=== PATIENT | male | born 1955 | race Caucasian/White ===

== ENCOUNTER 2019-09-09 09:18 | Emergency (ER) | payer BC, OTHER ==
--- OUTSIDE RECORDS SUMMARY | 2019-09-09 09:26 | XMS REPORT | Continuity of Care Document ---
:1955 External Reference #:[id number] Author Name Skyler Cote N.P. Address [address] [place] [address] Problems Active Problems Provider Date Anxiety Skyler Cote N.PVanesa Onset: 04/06/2015 Osteoarthritis Skyler Cote N.P. 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 Onset: 2015 substance or known physiological condition Social History Type Date Description Comments Sex Unknown Tobacco Use Start: Unknown Never Smoked Cigarettes Tobacco Use Start: Unknown Patient has never smoked Allergies, Adverse Reactions, Alerts Active Allergies Reaction Severity Comments Date Sulfa 02/08/2007 Tylenol intolerance 03/15/2014 Medications Active Medications SIG Qnty Indications Ordering Provider Date Ciprofloxacin HCL 1 by mouth twice 20tabs Skyler Cote, 08/23/2019 500mg a day x 10 days N.P. Tablets Doxycycline Hyclate 2 by mouth once 2caps Skyler Cote, 08/01/2019 100mg today N.P. Capsules Hydrocodone-Ibuprofen 1 by mouth every 30tabs Skyler Cote, 2016 6 hours as N.P. 7.5-200mg Tablets needed pain Diazepam 1 twice a day as 60tabs Skyler Cote, 06/01/2017 10mg Tablets needed N.P. Zolpidem Tartrate 1 by mouth every 30tabs Skyler Cote, 06/01/2017 10mg night at bedtime N.P. Tablets Immunizations CPT Code Status Date Vaccine Lot # [id number] Given 11/04/2007 Tdap (Adacel) Ages 7 And Above Only [id number] Refused 08/30/2019 Influenza Vac, Quadrivalent, Split, 0.5mL Dosage, Im Use [id number] Refused 12/31/2018 Influenza Vac, Quadrivalent, Split, 0.5mL Dosage, Im Use Vital Signs Date Vital Result Comment 08/30/2019 10:01am Body Temperature 97.7 F Weight 223.00 lb Heart Rate 72 /min BP Systolic 158 mmHg BP Diastolic 88 mmHg O2 % BldC Oximetry 96 % 06/13/2019 1:32pm Body Temperature 97.5 F Weight 228.38 lb Heart Rate 97 /min BP Systolic 122 mmHg BP Diastolic 80 mmHg O2 % BldC Oximetry 97 % Results Test Acquired Date Facility Test Result H/L Range Note Laboratory test finding 08/30/2019 [facility] BNP 18 pg/mL (0-125) 1, 2 Comprehensive Met 08/30/2019 [facility] Sodium 137 mmol/L 135-146 3 [facility] Potassium 4.4 mmol/L 3.5-5.2 Chloride# 102 mmol/L 97-110 4 Carbon Dioxide 24 mmol/L 24-34 Calcium 10.0 mg/dL 8.5-10.5 5 Glucose 111 mg/dL High 70-105 BUN 20 mg/dL 6-26 Creatinine 1.0 mg/dL 0.5-1.4 Total Protein 6.9 g/dL 6.0-8.0 Albumin 4.8 g/dL 3.6-4.9 Globulin 2.1 g/dL 2.0-3.5 A/G Ratio 2.3 Ratio High 1.0-2.2 Total Bilirubin 0.6 mg/dL 0.1-1.3 Alkaline Phosphatase 56 U/L 24-140 Alt 40 U/L 3-42 Ast 20 U/L 8-42 Anion Gap 11 mmol/L 5-15 6 Female Egfr 60 Low >60 7 Male Egfr 80 >60 8 CBC with Auto Diff-[facility] 08/30/2019 [facility] WBC 10.6 K/uL 4.1-11.0 RBC 5.01 M/uL 4.60-6.10 Hemoglobin 16.0 gm/dL 13.5-18.0 Hematocrit 46.2 % 41.0-53.0 MCV 92.3 fL 80.0-97.0 MCH 32.0 pg 27.0-32.0 MCHC 34.7 g/dL 32.0-36.0 RDW 13.4 % 11.5-14.5 PLT Count 309 K/ul 140-400 MPV 8.1 FL 7.1-10.7 Neutrophil 67.0 % 35.0-75.0 Lymphocyte 20.5 % 16.0-52.0 Monocyte 9.0 % 2.0-10.0 Eosinophil 2.9 % 0.0-5.0 Basophil 0.6 % 0.0-4.0 Abs Neutrophils 7.1 K/uL 2.1-8.0 Abs Lymphocytes 2.2 K/uL 0.8-5.5 Abs Monocytes 1.0 K/uL 0.1-1.0 Abs Eosinophils 0.3 K/uL 0.0-0.5 Abs Basophils 0.1 K/uL 0.0-0.3 Lipid 08/30/2019 [facility] Cholesterol 274 mg/dL High 50-199 Triglycerides 203 mg/dL High 30-200 HDL 56 mg/dL 29-71 9 Chol/ HDL Ratio 4.9 ratio 4.0-6.7 VLDL 41 mg/dL High 2-29 LDL (Calc) 178 mg/dL High 20-99 10 [facility] Ig[facility]gg [facility]Neg) 11 AB @ Laboratory test 08/30/2019 [facility] Urine Culture Microbiology res 12 finding <SEE NOTE> Comprehensive Met 06/13/2019 [facility] Sodium 140 mmol/L 135-146 13, 14 [facility] Potassium 4.5 mmol/L 3.5-5.2 Chloride# 100 mmol/L 97-110 15 Carbon Dioxide 27 mmol/L 24-34 Calcium 10.1 mg/dL 8.5-10.5 16 Glucose 124 mg/dL High 70-105 BUN 17 mg/dL 6-26 Creatinine 1.1 mg/dL 0.5-1.4 Total Protein 6.8 g/dL 6.0-8.0 Albumin 4.6 g/dL 3.6-4.9 Globulin 2.2 g/dL 2.0-3.5 A/G Ratio 2.1 Ratio 1.0-2.2 Total Bilirubin 0.5 mg/dL 0.1-1.3 Alkaline Phosphatase 48 U/L 24-140 Alt 38 U/L 3-42 Ast 17 U/L 8-42 Anion Gap 13 mmol/L 5-15 17 Female Egfr 51 Low >60 18 Male Egfr 68 >60 19 Laboratory test 06/13/2019 [facility] PSA 1.230 ng/mL 0.000-4.000 20 finding Lipid 06/13/2019 [facility] Cholesterol 285 mg/dL High 50-199 Triglycerides 413 mg/dL High 30-200 21 HDL 45 mg/dL 29-71 22 Chol/ HDL Ratio 6.3 ratio 4.0-6.7 Laboratory test finding 06/13/2019 [facility] LDL 198 mg/dL High 20- 99 23 1 This sample is drawn by:DL/STOCKROOM KEEPER 2 Unless otherwise specified, testing performed by [facility] [address] [place] [address] 3 Updated reference range on new analyzer 4 Updated reference range on new analyzer 5 Updated reference range 02-23-2019 6 Updated Reference Range 7 Concerning GFR Guidelines for Americans: Normal function or mild renal disease, if clinically at risk: >/= 60 mL/min Moderately decreased: 30-59 Severely decreased: 15-29 Renal failure: <15 There is reduced accuracy above 60ml/min/1.73 m squared, but the numeric value may be clinically useful in the near 60 range 8 Concerning GFR Guidelines: Normal function or mild renal disease, if clinically at risk: >/= 60 mL/min Moderately decreased: 30-59 Severely decreased: 15-29 Renal failure: <15 There is reduced accuracy above 60ml/min/1.73 m squared, but the numeric value may be clinically useful in the near 60 range Glomerular Filtration Rate (GFR) is estimated based on the CKD-EPI equation, which assumes a steady state for creatinine as recommended by the National Kidney Disease Education Program in conjunction with the National Institutes of Health and the National Kidney Foundation. Clinical conditions in which it may be necessary to measure GFR by using clearance methods include extremes of age and body size, severe malnutrition or obesity, diseases of skeletal muscle, paraplegia or quadriplegia, vegetarian diet, rapidly changing kidney function, and calculation of the dose of potentially toxic drugs that are excreted by the kidneys. 9 Per NCEP ATP III Guidelines: Results lower than 40 mg/dL are suggestive of increased risk for coronary artery disease. Results > or = to 60 mg/dL are considered a negative risk factor. 10 Per NCEP ATP III Guidelines: Normal Population <130 Patients with medical conditions: CHD/DM Optimal: <100 Borderline high: 130-159 High: 160-189 Very high: >189 11 A Negative serologic test for Lyme Disease indicates no serologic evidence of infection with B burgdorferi at the time this specimen was collected. A repeat specimen should be collected in 2 to 4 weeks if clinically indicated. Unless otherwise specified, testing performed by [facility] [address] [place] [id number] 12 Microbiology results SOURCE Clean Catch Midstream FINAL RESULT No growth 13 This sample is drawn by:ss/set up machinist 14 Updated reference range on new analyzer 15 Updated reference range on new analyzer 16 Updated reference range 02-23-2019 17 Updated Reference Range 18 Concerning GFR Guidelines for Americans: Normal function or mild renal disease, if clinically at risk: >/= 60 mL/min Moderately decreased: 30-59 Severely decreased: 15-29 Renal failure: <15 There is reduced accuracy above 60ml/min/1.73 m squared, but the numeric value may be clinically useful in the near 60 range 19 Concerning GFR Guidelines: Normal function or mild renal disease, if clinically at risk: >/= 60 mL/min Moderately decreased: 30-59 Severely decreased: 15-29 Renal failure: <15 There is reduced accuracy above 60ml/min/1.73 m squared, but the numeric value may be clinically useful in the near 60 range Glomerular Filtration Rate (GFR) is estimated based on the CKD-EPI equation, which assumes a steady state for creatinine as recommended by the National Kidney Disease Education Program in conjunction with the National Institutes of Health and the National Kidney Foundation. Clinical conditions in which it may be necessary to measure GFR by using clearance methods include extremes of age and body size, severe malnutrition or obesity, diseases of skeletal muscle, paraplegia or quadriplegia, vegetarian diet, rapidly changing kidney function, and calculation of the dose of potentially toxic drugs that are excreted by the kidneys. 20 Beginning 12/21/06 PSA values assayed at [facility] uses chemiluminescence methodology manufactured by [employer] for use on the DXI analyzer. Values obtained with different assay methods or kits can not be used interchangeably. Serum PSA measurement is not an absolute test for malignancy. The PSA value should be used in conjunction with information available from clinical evaluation and other diagnostic procedures. 21 Specimen Slightly Lipemic 22 Per NCEP ATP III Guidelines: Results lower than 40 mg/dL are suggestive of increased risk for coronary artery disease. Results > or = to 60 mg/dL are considered a negative risk factor. 23 Per NCEP ATP III Guidelines: Normal population: <130 Patients with medical conditions: CHD/DM Optimal range: <100 Borderline high: 130-159 High: 160-189 Very high: >189 Procedures Date Code Description Status 07/09/2016 [id number] Colonoscopy Completed Medical Devices Description No Information Available Encounters Type Date Location Provider Dx Diagnosis Office Visit 06/13/2019 Cristin Skyler Cote, I10 Essential (primary) 1:15p N.P. hypertension Z12.5 Encounter for screening for malignant neoplasm of prostate E66.9 Obesity, unspecified M19.049 Primary osteoarthritis, unspecified hand Z13.31 Encounter for screening for depression Assessments Date Code Description Provider 08/30/2019 I10 Essential (primary) hypertension Stella Cotele, N.P. 08/30/2019 R53.83 Other fatigue Stella Cotele, N.P. 08/30/2019 R06.02 Shortness of breath Skyler Cote, N.P. 08/30/2019 E66.9 Obesity, unspecified Rocael, Stellale, N.P. 08/30/2019 Z28.21 Immunization not carried out because of Skyler Cote, N.P. patient refusal 08/30/2019 I10 Essential (primary) hypertension [facility] 08/30/2019 R53.83 Other fatigue [facility] 08/30/2019 R06.02 Shortness of breath [facility] 08/30/2019 E66.9 Obesity, unspecified [facility] 08/30/2019 R82.90 Unspecified abnormal findings in urine [facility] 06/13/2019 I10 Essential (primary) hypertension Skyler Cote, N.P. 06/13/2019 Z12.5 Encounter for screening for malignant Rocael, Skyler, N.P. neoplasm of prostate 06/13/2019 E66.9 Obesity, unspecified Rocael, Dianahelle, N.P. 06/13/2019 M19.049 Primary osteoarthritis, unspecified hand Skyler Cote , N.P. 06/13/2019 Z13.31 Encounter for screening for depression Skyler Cote N.[place]. 06/13/2019 I10 Essential (primary) hypertension [facility] 06/13/2019 Z12.5 Encounter for screening for malignant [facility] neoplasm of prostate 06/13/2019 E66.9 Obesity, unspecified [facility] Plan of Treatment 08/30/2019 - Skyler Cote N.P.I10 Essential (primary) hypertensionComments: currently stable without medspt will cont to monitor B/P and report elevation 5A's for Cardiovascular Disease Counseling 1. ASSESS: Patient has I10 Essential (primary) hypertension2. ADVISE: Discussed the importance of regular exercise, DASH diet, stress reduction, avoidance of NSAIDS and low cholesterol diet. Counseled on statin therapy. 3. AGREE: Patient agrees to implement the modifications discussed today.4. ASSIST: Patient was offered nutritional therapy and provided information on the risks of cardiovascular disease.5. ARRANGE: We will follow-up at next visit to see how the patient has implemented the above changes.Time spent counseling the patient on CVD is 8 minutes 10 minutes 15 minutes CVD Screening Completed ([id number])R53.83 Other fatigueComments: most likely result of lifestylediscussed weight, deconditioning and intermittent strenuous activity as contributors to jadrdwoN40.02 Shortness of breathComments:f/u labspateint agrees to report to ER if symps uaxociE96.9 Obesity, unspecifiedComments:health risks of obesity discussed with pt. instructed to decrease caloric intake, aerobic exercise, start slow as [id number] Immunization not carried out because of patient refusalComments: patient counseled about benefits of receiving flu vaccinedeclines at this time for non-specific reason Functional Status Description No Information Available Mental Status Description No Information Available Referrals Description No Information Available
[2019-09-09 09:48] VITALS: BP 130/87
--- NOTE | 2019-09-09 11:15 | UC ---
Nausea/Vomiting/Diarrhea HPI - HPI Summary HPI Summary: G RADUALLY WORSENING WATERY DIARRHEA FOR THE PAST 3 WEEKS. HAS BEEN FUR TRAPPING IN THE [place] AND DRINKING [place]CG[place] WATER. CALLED HIS PCP COMPLAINING OF LOWER ABDOMINAL PAIN CONCERNED ABOUT URINARY INFECTION. SHE CALLED HIM IN SOME CIPRO WHICH HE TOOK FOR 8 DAYS. FELT HIS SYMPTOMS IMPROVED A BIT BUT FOR THE LAST 4 OR 5 DAYS HAVE BEEN MUCH MUCH WORSE. NO FEVER. NO NAUSEA/VOMITING. IS CONCERNED ABOUT GIARDIA. - History of Current Complaint Chief Complaint: UCGI Stated Complaint: ABD PAIN FATIGUE DIARRHEA Time Seen by Provider: 09/09/19 09:55 Hx Obtained From: Patient Onset/Duration: Gradual Onset, Lasting Weeks, Still Present Severity Initially: Moderate Severity Currently: Moderate Pain Intensity: 3 Pain Scale Used: 0-10 Numeric Location: Suprapubic Character: Dull, Cramping Aggravating Factor(s): Nothing Alleviating Factor(s): Nothing Nausea/Vomiting Presence: None Diarrhea Presence: Yes Diarrhea Frequency: Other - 4-5 TIMES EVERY MORNING Diarrhea Duration: > 7 days Diarrhea Characteristics: Watery - Allergies/Home Medications Allergies/Adverse Reactions: Allergies Allergy/AdvReac Type Severity Reaction Status Date / Time Sulfa (Sulfonamide Allergy See Comment Verified 09/09/19 09:39 Antibiotics) PMH/Surg Hx/FS Hx/Imm Hx Previously Healthy: Yes - Surgical History Surgical History: Yes Surgery Procedure, Year, and Place: L knee surgery - Family History Known Family History: Positive: Non-Contributory - Social History Alcohol Use: Occasionally Substance Use Type: None Smoking Status (MU): Never Smoked Tobacco Review of Systems All Other Systems Reviewed And Are Negative: Yes Constitutional: Positive: Negative Respiratory: Positive: Negative Cardiovascular: Positive: Negative Gastrointestinal: Positive: Abdominal Pain, Diarrhea Genitourinary: Positive: Negative Physical Exam Triage Information Reviewed: Yes Appearance: Well-Appearing, No Pain Distress, Well-Nourished Vital Signs: Initial Vital Signs Temp 98.6 F 09/09/19 09:40 Pulse 81 09/09/19 09:40 Resp 18 09/09/19 09:40 BP 130/87 09/09/19 09:40 Pulse Ox 99 09/09/19 09:40 Vital Signs Reviewed: Yes Eyes: Positive: Conjunctiva Clear ENT: Positive: Hearing grossly normal Neck: Positive: Supple Respiratory Exam: Normal Cardiovascular Exam: Normal Abdomen Description: Positive: Soft, Other: - MILD LOWER ABDOMINAL PAIN. NO RIGIDITY OR REBOUND. Negative: CVA Tenderness (R), CVA Tenderness (L), Distended, Guarding Bowel Sounds: Positive: Present Musculoskeletal: Positive: No Edema Neurological: Positive: Alert Psychological: Positive: Age Appropriate Behavior Skin: Negative: Rashes Naus/Vom/Diarrhea Course/Dx - Course Course Of Treatment: GIVEN PATIENT'S HISTORY OF DRINKING UNTREATED MCGREGOR WATER AND PRESENTATION WITH WATERY DIARRHEA WILL GO AHEAD AND COVER FOR GIARDIA WITH METRONIDAZOLE 3 TIMES DAILY FOR 7 DAYS. PATIENT WAS ABLE TO PROVIDE A SAMPLE WHILE HERE IN THE URGENT CARE. IT HAS BEEN SENT FOR TESTING. ADVISED NO ALCOHOL WHILE ON THIS MEDICATION. - Differential Dx/Diagnosis Provider Diagnosis: Acute diarrhea Condition At Discharge: Stable Discharge ED - Sign-Out/Discharge Documenting (check all that apply): Patient Departure All imaging exams completed and their final reports reviewed: No Studies - Discharge Plan Condition: Stable Disposition: HOME Prescriptions: metroNIDAZOLE [Flagyl 500 MG TAB] 500 mg PO TID #21 tab Patient Education Materials: Giardiasis (ED), Acute Diarrhea (ED) Referrals: Skyler Cote, RELATIONSHIP MANAGER [Primary Care Provider] - If Needed Additional Instructions: YOUR STOOL HAS BEEN SENT FOR TESTING. WE WILL CALL YOU WITH ANY ABNORMAL RESULTS. GIVEN YOUR HISTORY I THINK YOUR CONCERN FOR GIARDIA IS LEGITIMATE. TAKE THE ANTIBIOTIC 3 TIMES DAILY FOR THE FULL 7 DAYS. NO ALCOHOL WHILE ON THIS MEDICATION. IF YOUR SYMPTOMS DO NOT IMPROVE WITH THIS TREATMENT FOLLOW-UP WITH GI. GO TO THE ER WITHOUT FAIL IF YOU DEVELOP WORSENING ABDOMINAL PAIN, BLOODY STOOLS, FEVER, NAUSEA/VOMITING, SHORTNESS OF BREATH OR ANY OTHER CONCERNING SYMPTOMS. [facility] Address: [address], [place] [address] - Billing Disposition and Condition Condition: STABLE Disposition: Home
--- NOTE | 2019-09-10 09:57 | UC ---
- Progress Note Progress Note: PROGRESS NOTE: LAB RESULTS:positive for Giardia MDM:. Patient is being treated with metronidazole 3 times a day. No change in diagnosis or treatment. Nino Menjivar MD Course/Dx - Diagnoses Provider Diagnoses: Acute diarrhea Discharge ED - Sign-Out/Discharge Documenting (check all that apply): Post-Discharge Follow Up All imaging exams completed and their final reports reviewed: No Studies - Discharge Plan Condition: Stable Disposition: HOME Prescriptions: metroNIDAZOLE [Flagyl 500 MG TAB] 500 mg PO TID #21 tab Patient Education Materials: Giardiasis (ED), Acute Diarrhea (ED) Referrals: Skyler Cote NP [Primary Care Provider] - If Needed Additional Instructions: YOUR STOOL HAS BEEN SENT FOR TESTING. WE WILL CALL YOU WITH ANY ABNORMAL RESULTS. GIVEN YOUR HISTORY I THINK YOUR CONCERN FOR GIARDIA IS LEGITIMATE. TAKE THE ANTIBIOTIC 3 TIMES DAILY FOR THE FULL 7 DAYS. NO ALCOHOL WHILE ON THIS MEDICATION. IF YOUR SYMPTOMS DO NOT IMPROVE WITH THIS TREATMENT FOLLOW-UP WITH GI. GO TO THE ER WITHOUT FAIL IF YOU DEVELOP WORSENING ABDOMINAL PAIN, BLOODY STOOLS, FEVER, NAUSEA/VOMITING, SHORTNESS OF BREATH OR ANY OTHER CONCERNING SYMPTOMS. [facility] Address: [address], [place] [address] - Billing Disposition and Condition Condition: STABLE Disposition: Home
--- NOTE | 2019-09-11 15:42 | UC ---
- Progress Note Progress Note: stool: neg enteric pathogens, neg shiga, neg c dif, neg crypto + giardia: addressed by Dr. Menjivar Course/Dx - Diagnoses Provider Diagnoses: Acute diarrhea Discharge ED - Sign-Out/Discharge Documenting (check all that apply): Post-Discharge Follow Up All imaging exams completed and their final reports reviewed: No Studies - Discharge Plan Condition: Stable Disposition: HOME Prescriptions: metroNIDAZOLE [Flagyl 500 MG TAB] 500 mg PO TID #21 tab Patient Education Materials: Giardiasis (ED), Acute Diarrhea (ED) Referrals: Skyler Cote CORRECTIONAL PROGRAM OFFICER [Primary Care Provider] - If Needed Additional Instructions: YOUR STOOL HAS BEEN SENT FOR TESTING. WE WILL CALL YOU WITH ANY ABNORMAL RESULTS. GIVEN YOUR HISTORY I THINK YOUR CONCERN FOR GIARDIA IS LEGITIMATE. TAKE THE ANTIBIOTIC 3 TIMES DAILY FOR THE FULL 7 DAYS. NO ALCOHOL WHILE ON THIS MEDICATION. IF YOUR SYMPTOMS DO NOT IMPROVE WITH THIS TREATMENT FOLLOW-UP WITH GI. GO TO THE ER WITHOUT FAIL IF YOU DEVELOP WORSENING ABDOMINAL PAIN, BLOODY STOOLS, FEVER, NAUSEA/VOMITING, SHORTNESS OF BREATH OR ANY OTHER CONCERNING SYMPTOMS. [facility] Address: [address], [place] [address] - Billing Disposition and Condition Condition: STABLE Disposition: Home
== END 2019-09-09 10:45 | disposition home or self-care (01) ==
LOC: UCEAST 09:18
DX: R19.7 Diarrhea, unspecified (principal); R10.30 Lower abdominal pain, unspecified; R53.83 Other fatigue; Z88.2 Allergy status to sulfonamides
CPT/HCPCS: 83630; 87045; 87046; 87328; 87329; 87493; 87899; 99212; G0463